=== PATIENT | female | born 2000 | race Asian ===

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

== ENCOUNTER 2022-03-09 18:41 | Emergency (ER) | payer OTHER ==
[~2022-03-09] VITALS: Ht 167.6 cm; Wt 77.1 kg
[2022-03-09 19:16] LABS: PLATELET COUNT 183 K/uL (152-353)
[2022-03-09 19:25] LABS: POTASSIUM 3.8 mmol/L (3.6-5.2)
[2022-03-09 19:43] LABS: PARTIAL THROMBOPLASTIN TIME 25.6 SECONDS (24.5-33.6)
[2022-03-09 22:00] VITALS: BP 115/62; TEMP 103.2
== END 2022-03-09 22:00 | disposition home or self-care (01) ==
LOC: ED 18:41
PROVIDERS: Hospitalist
DX: Z3A.01 Less than 8 weeks gestation of pregnancy (principal); O21.9 Vomiting of pregnancy, unspecified
CPT/HCPCS: 36415; 80053; 80307; 80320; 81000; 84702; 85027; 85610; 85730; 87651; 96360; 96374; 99284; J0696; J2405

== ENCOUNTER 2023-05-20 16:05 | Emergency (ER) | payer OTHER ==
[~2023-05-20] VITALS: Ht 167.6 cm; Wt 84.4 kg
[2023-05-20 16:07] VITALS: BP 139/56; TEMP 97.9
[2023-05-20 17:58] LABS: PLATELET COUNT 188 K/uL (152-353)
[2023-05-20 18:09] LABS: POTASSIUM 3.9 mmol/L (3.6-5.2)
== END 2023-05-20 18:24 | disposition home or self-care (01) ==
LOC: ED 16:05
PROVIDERS: Family Medicine
DX: R07.89 Other chest pain (principal)
CPT/HCPCS: 80048; 81025; 85027; 93005; 99283